=== PATIENT | female | born 1970 | race African-American/Black ===

== ENCOUNTER 2016-12-05 10:33 | Emergency (ER) | payer OTHER ==
[~2016-12-05] VITALS: Ht 154.9 cm; Wt 78.0 kg
[2016-12-05 10:56] VITALS: BP 131/87
--- NOTE | 2016-12-05 11:10 | NUR ---
PT PLACED IN OVERFLOW CHAIR.
--- NOTE | 2016-12-05 11:22 | NUR ---
ER DOCTOR EVALUATING OVERFLOW PATIENT
[2016-12-05] MEDS ORDERED: IBUPROFEN 800 MG TAB PO ONE (11:30)
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
--- NOTE | 2016-12-05 12:25 | NUR ---
PT ADVISED [facility] CALLED AND ADVISED THEY WERE SENDING A UNIT TO SPEAK WITH HER. PT VERBALIZED UNDERSTANDING.
[2016-12-05 12:43] VITALS: BP 131/87
== END 2016-12-05 12:43 | disposition home or self-care (01) ==
LOC: MED 10:33
DX: S16.1XXA Strain of muscle, fascia and tendon at neck level, initial encounter (principal); R51 Headache; V43.62XA Car passenger injured in collision with other type car in traffic accident, initial encounter; Y93.I9 Activity, other involving external motion; Y92.488 Other paved roadways as the place of occurrence of the external cause; Y99.8 Other external cause status

== ENCOUNTER 2020-08-09 12:40 | Emergency (ER) | payer OTHER ==
[~2020-08-09] VITALS: Ht 157.5 cm; Wt 84.4 kg
[2020-08-09 12:41] VITALS: BP 138/91
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
[2020-08-09 13:26] VITALS: BP 138/91
--- NOTE | 2020-08-09 13:26 | NUR ---
Patient discharged with v/s stable. Written and verbal after care instructions given and explained. Patient alert, oriented and verbalized understanding of instructions. Ambulatory with steady gait. All questions addressed prior to discharge. ID band removed. Patient advised to follow up with PMD. Rx of REGLAN, NORCO, BENADRYL given. Patient educated on indication of medication including possible reaction and side effects. Opportunity to ask questions provided and answered.
== END 2020-08-09 13:26 | disposition home or self-care (01) ==
LOC: MED 12:40
DX: R51.9 Headache, unspecified (principal)
CPT/HCPCS: 99283

== ENCOUNTER 2020-12-04 09:12 | Emergency (ER) | payer OTHER ==
[~2020-12-04] VITALS: Ht 154.9 cm; Wt 77.1 kg
--- NOTE | 2020-12-04 09:15 | NUR ---
Patient ambulated with steady gait to bed 7.
[2020-12-04 09:37] VITALS: BP 136/83
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
[2020-12-04 09:53] LABS: BASOPHILS % (AUTO) 0.7 % (0.0-2.0); EOSINOPHILS # (AUTO) 0.3 K/uL (0-0.4); EOSINOPHILS % (AUTO) 6.6 % (0.0-4.0); HEMATOCRIT 38.1 % (36-48); HEMOGLOBIN 12.2 g/dL (12.0-16.0); LYMPHOCYTES % (AUTO) 50.6 % (20.5-51.1); MEAN CORPUSCULAR HEMOGLOBIN 25 pg (27-31); MEAN CORPUSCULAR HGB CONC 32 g/dL (33-37); MEAN CORPUSCULAR VOLUME 79.1 fL (80-94); MONOCYTES # (AUTO) 0.3 K/uL (0.8-1.0); MONOCYTES % (AUTO) 8.6 % (1.7-9.3); NEUTROPHILS # (AUTO) 1.3 K/uL (1.8-7.7); NEUTROPHILS % (AUTO) 33.5 % (42.2-75.2); PLATELET COUNT (AUTO) 255 K/uL (140-450); RED BLOOD CELL COUNT(AUTO) 4.82 MIL/uL (4.20-5.40); RED CELL DISTRIBUTION WIDTH 21.8 % (11.6-13.7); WHITE BLOOD COUNT (AUTO) 3.9 K/uL (4.8-10.8)
[2020-12-04 10:02] LABS: ANION GAP 13.1 (8-16); CARBON DIOXIDE 26.2 mmol/L (21-32); CREATININE 0.8 mg/dL (0.6-1.3); POTASSIUM 4.3 mmol/L (3.5-5.1)
[2020-12-04 10:13] LABS: ALBUMIN 3.5 g/dL (3.4-5.0); TOTAL BILIRUBIN 0.3 mg/dL (0.0-1.0)
[2020-12-04] MEDS ORDERED: HYDR-1098 PO (10:38)
[2020-12-04 10:49] VITALS: BP 136/83
--- NOTE | 2020-12-04 10:50 | NUR ---
Patient discharged with v/s stable. Written and verbal after care instructions given and explained. Patient alert, oriented and verbalized understanding of instructions. Ambulatory with steady gait. All questions addressed prior to discharge. ID band removed. Patient advised to follow up with PMD. Rx of HYDRALAZINE given. Patient educated on indication of medication including possible reaction and side effects. Opportunity to ask questions provided and answered.
== END 2020-12-04 10:50 | disposition home or self-care (01) ==
LOC: MED 09:12
DX: F41.9 Anxiety disorder, unspecified (principal); R07.89 Other chest pain; Z79.899 Other long term (current) drug therapy
CPT/HCPCS: 36415; 80053; 81002; 84484; 85025; 99283

== ENCOUNTER 2021-03-18 15:53 | Emergency (ER) | payer OTHER ==
[~2021-03-18] VITALS: Ht 154.9 cm; Wt 84.9 kg
[~2021-03-18 15:53] MED LIST: HYDR-1098 PO
[2021-03-18] MEDS ORDERED: KETOROLAC 60 MG/2 ML VIAL IM ONE (16:15)
[2021-03-18 16:28] VITALS: BP 118/80
[2021-03-18] MEDS ORDERED: KETOROLAC 15 MG/ML VIAL IVP ONE (16:55)
[2021-03-18] MEDS ORDERED: diphenhydrAMINE 50 MG/ML VIAL IVP ONE (17:05)
[2021-03-18 17:09] LABS: BASOPHILS % (AUTO) 0.5 % (0.0-2.0); EOSINOPHILS # (AUTO) 0.2 K/uL (0-0.4); EOSINOPHILS % (AUTO) 3.7 % (0.0-4.0); HEMATOCRIT 41.6 % (36-48); HEMOGLOBIN 13.7 g/dL (12.0-16.0); LYMPHOCYTES # (AUTO) 2.3 K/uL (2.5-16.5); LYMPHOCYTES % (AUTO) 41.4 % (20.5-51.1); MEAN CORPUSCULAR HEMOGLOBIN 30 pg (27-31); MEAN CORPUSCULAR HGB CONC 33 g/dL (33-37); MEAN CORPUSCULAR VOLUME 90.4 fL (80-94); MONOCYTES # (AUTO) 0.4 K/uL (0.8-1.0); NEUTROPHILS # (AUTO) 2.6 K/uL (1.8-7.7); NEUTROPHILS % (AUTO) 47.4 % (42.2-75.2); PLATELET COUNT (AUTO) 277 K/uL (140-450); RED CELL DISTRIBUTION WIDTH 14.7 % (11.6-13.7); WHITE BLOOD COUNT (AUTO) 5.5 K/uL (4.8-10.8)
[2021-03-18 17:26] LABS: ALBUMIN 3.6 g/dL (3.4-5.0); ANION GAP 11.3 (8-16); CARBON DIOXIDE 28.1 mmol/L (21-32); CREATININE 1.2 mg/dL (0.6-1.3); POTASSIUM 4.4 mmol/L (3.5-5.1); TOTAL BILIRUBIN 0.2 mg/dL (0.0-1.0)
[2021-03-18 17:33] LABS: APPEARANCE,URINE CLEAR (CLEAR); BILIRUBIN,URINE NEGATIVE (NEGATIVE); BLOOD, URINE TRACE-I (NEGATIVE); COLOR,URINE YELLOW (YELLOW); LEUKOCYTE ESTERASE ,URINE NEGATIVE (NEGATIVE); NITRITE, URINE NEGATIVE (NEGATIVE); UGLUCOSE NEGATIVE (NEGATIVE)
--- NOTE | 2021-03-18 17:51 | NUR ---
PT TAKEN TO BED 7 AND GIVEN GOWN
--- NOTE | 2021-03-18 17:52 | NUR ---
PATIENT PRESENTS TO ED WITH RIGHT LOWER QUADRANTS PAIN X3 DAYS . PT STATES SHE IS EXPERIENCING SHARP PAIN ASSOCIATED WITH NAUSEA AND VOMITING X3 DAYS . SKIN IS PINK/WARM/DRY; AAOX4 WITH EVEN AND STEADY GAIT; LUNGS CLEAR BL; HR EVEN AND REGULAR; PT DENIES ANY FEVER, CP, SOB, OR COUGH AT THIS TIME; PATIENT STATES PAIN OF 7/10 AT THIS TIME; VSS; PATIENT POSITIONED FOR COMFORT; HOB ELEVATED; BEDRAILS UP X2; BED DOWN. ER MD MADE AWARE OF PT STATUS.
[2021-03-18 17:53] LABS: RBC,URINE 11-20 (MOD) /HPF (0-5); WBC,URINE 0-5 /HPF (0-5)
[2021-03-18] MEDS ORDERED: MORPHINE SULFATE 4 MG/ML SYR IVP ONE (17:55)
[2021-03-18 18:30] VITALS: BP 118/80
--- NOTE | 2021-03-18 18:45 | NUR ---
PT REFUSED MORPHINE ADMIN
--- NOTE | 2021-03-18 19:32 | NUR ---
Patient discharged with v/s stable. Written and verbal after care instructions given and explained. Patient verbalized understanding. Ambulatory with steady gait. All questions addressed prior to discharge. Advised to follow up with PMD.
== END 2021-03-18 19:32 | disposition home or self-care (01) ==
LOC: MED 15:53
DX: R10.31 Right lower quadrant pain (principal); R68.83 Chills (without fever); R11.0 Nausea
CPT/HCPCS: 36415; 74177; 80053; 81001; 83690; 84703; 85025; 96374; 96375; 99285; J1200; J1885; Q9967; J2270

== ENCOUNTER 2021-10-18 09:01 | Emergency (ER) | payer OTHER ==
[~2021-10-18] VITALS: Ht 154.9 cm; Wt 85.3 kg
[2021-10-18 09:05] VITALS: BP 151/95
[2021-10-18 11:27] VITALS: BP 154/81
== END 2021-10-18 11:29 | disposition home or self-care (01) ==
LOC: MED 09:01
DX: M13.861 Other specified arthritis, right knee (principal); Z79.899 Other long term (current) drug therapy
CPT/HCPCS: 73562; 73700; 99284

== ENCOUNTER 2022-07-22 20:30 | Emergency (ER) | payer OTHER ==
[~2022-07-22] VITALS: Ht 154.9 cm; Wt 77.1 kg
[2022-07-22 20:36] VITALS: BP 145/92
--- NOTE | 2022-07-22 20:48 | NUR ---
TO LOBBY FOLLOWING TRIAGE
--- NOTE | 2022-07-22 21:00 | NUR ---
51 Y/O F PRESENTS WITH R ANKLE PAIN RADIATING TO R KNEE. APPEARS SWOLLEN. PAIN 5/10. PT STATED THIS HAS BEEN HAPPENING SINCE 2021. PT DENIES ANY NVD, SKIN INTACT AND A&OX4. PMH- NKA
--- NOTE | 2022-07-22 23:24 | NUR ---
PT TO CT
--- NOTE | 2022-07-22 23:43 | NUR ---
PT BACK FROM CT
--- NOTE | 2022-07-23 01:36 | NUR ---
DR. KENDALL AT BEDSIDE
[2022-07-23] MEDS ORDERED: NAPR-54 PO (01:57)
--- NOTE | 2022-07-23 02:05 | NUR ---
Patient discharged with v/s stable. Written and verbal after care instructions given and explained. Patient alert, oriented and verbalized understanding of instructions. Ambulatory with steady gait. All questions addressed prior to discharge. ID band removed. Patient advised to follow up with PMD. Rx of NAPROXEN given. Opportunity to ask questions provided and answered.
--- NOTE | 2022-07-23 02:18 | NUR ---
BESS WRAP TO PATIENTS R ANKLE. CMS CHECKED, WNL.
[2022-07-23 02:23] VITALS: BP 124/78
== END 2022-07-23 02:28 | disposition home or self-care (01) ==
LOC: MED 20:30
DX: S99.921A Unspecified injury of right foot, initial encounter (principal); X58.XXXA Exposure to other specified factors, initial encounter; Y93.89 Activity, other specified; Y92.89 Other specified places as the place of occurrence of the external cause; Y99.8 Other external cause status
CPT/HCPCS: 73700; 99283; 99284